=== PATIENT | female | born 1930 | race Caucasian/White ===

== ENCOUNTER → 2017-04-27 | Day surgery (SDC) | payer OTHER ==
[2017-04-27] VITALS (12 sets, daily range): BP systolic 102–161; BP diastolic 59–87; PULSE 70–96; TEMP 36.5–36.9; O2SAT 95–100; Ht 157.5 cm; Wt 76.0 kg
[~2017-04-27] VITALS: Ht 157.5 cm; Wt 76.0 kg
[~2017-04-27] MED LIST: ASPI81TA28 PO; CALC500C70 PO; CLIN1GEL TOP; HYDR25TA4 PO; IPRASOL4 INH; LEVALBUTEROL 1.25MG/0.5ML NEB INH SCH; LEVALBUTEROL 1.25MG/3ML NEB INH ONE; LORA-741 PO; MIDAZOLAM HCL 1 MG/ML 2ML VIAL IV ONE; MIDAZOLAM HCL 5 MG/ML 1 ML VIAL IV SCH; MULT-513 PO; NTRGSL/4 SL; NURSING VERBAL MED ORDER ONE; OXGN; PRED20TA PO; TIOT1AER INH; TRAM-10 PO; TRAV0.00 OP; VNTHFA/IN INH
--- NOTE | 2017-04-27 07:53 | History & Physical Bridge Note ---
H&P Re-Evaluation Bridge Note: I have examined the patient, reviewed the History & Physical and in the interval since the performance of the History & Physical I have noted the following changes of clinical significance: No changes noted
--- NOTE | 2017-04-27 07:54 | Procedure Note ---
Pre-Mod Sedation Assessment General Date of Moderate Sedation: Apr 27, 2017. Pre-Sedation Airway Assessment Mallampati Classification: Class II ASA Classification: Class II Procedure Planning Contraindications-for Mod Sed: None Yes Notes The planned sedation has been discussed with the patient and consent obtained. I have identified the patient, determined the appropriateness of sedation and have assessed the patient immediately prior to the procedure. All medicine(s) and interventions are by my order.
--- NOTE | 2017-04-27 11:26 | Discharge Instructions ---
Discharge Instructions Date of Service Apr 27, 2017. Admission Reason for Admission: Copd, Pulmonary Nodule, Sob Discharge Discharge Diagnosis / Problem: Chronic Bronchitis Discharge Goals Goal(s): Diagnostic testing, Therapeutic intervention Activity Recommendations Activity Limitations: resume your previous activity Lifting Limitations: none Exercise/Sports Limitations: none May Resume Sexual Activity: when tolerated Shower/Bathe: no limitations Driving or Machine Use: no limitations none . Current Hospital Diet Patient's current hospital diet: Discharge Diet Recommended Diet: Regular Diet Fluid Restriction: None Pending Studies Studies pending at discharge: no Medical Emergencies . Who to Call and When: Medical Emergencies: If at any time you feel your situation is an emergency, please call 911 immediately. . Non-Emergent Contact Non-Emergency issues call your: [employer]se[employer] Leveler Call Non-Emergent contact if: temperature is above 101 ACTIVITY RECOMMENDATIONS: * Rest today, resume normal activity tomorrow. * Do not drive today. SPECIAL CARE INSTRUCTIONS: * Call your physician if you experience any chest or shoulder pain, fever, coughing, spitting up blood (more than 2 teaspoons) or excessive shortness of breath. * Remove dressing from IV site (where needle was placed into the vein) after 2 hours. Apply a warm, moist compress to site if irritation occurs. Call physician if site becomes red or painful to touch. FOLLOW UP VISIT: * Keep any scheduled doctor appointments. . . "Provider Documentation" section prepared by Davi Monique. . VTE Core Measure Inpt VTE Proph given/why not?: Treatment not indicated
--- NOTE | 2017-04-27 16:27 | OPERATIVE REPORT ---
DATE OF OPERATION: 04/27/2017 PROCEDURE: Fiberoptic bronchoscopy with bronchoalveolar lavage. INDICATIONS: Chronic asthmatic bronchitis refractory to outpatient therapy. ANESTHESIA PREOPERATIVELY: None. ANESTHESIA DURING PROCEDURE: 2 mg IV Versed, 20 mL 2% Xylocaine spray above and below the cords, 4% viscous Xylocaine intranasally. DESCRIPTION OF PROCEDURE: Fiberoptic bronchoscope was inserted through left naris with minimal difficulty and passed to the level of the true vocal cords. The cords appeared to approximate normally with phonation without evidence of lesions or paralysis. Thick mucus was adherent to the supraglottic apparatus and the lavaged until clear. The cords were anesthetized. The scope was passed into the trachea and right and left tracheobronchial tree. The rosas was sharp. The right main stem bronchus was found to be free of endobronchial lesions. There was evidence for EDAC (excessive dynamic airway collapse) involving the right mainstem bronchus to approximately 60% of its usual customary diameter. The right upper lobe, the apical posterior, anterior segments, bronchus intermedius, right middle lobe, medial lateral segments and all basilar segments of the right lower lobe were found to be free of endobronchial lesions with a moderate amount of mucopurulent secretion lavaged from all lobar segments until clear. Mucus pitting with bronchial crypts and clefts were seen throughout the right tracheobronchial tree. Left tracheobronchial tree was explored and no endobronchial lesion was seen. Left upper lobe, lingular subdivision and left lower lobe were free of endobronchial lesions down to subsegmental bronchi with a copious amount of mucopurulent secretion lavaged from left lower lobe until clear. No brushings or biopsies were deemed necessary. The procedure was terminated. The patient was given a nebulizer treatment 1.25 mg of Xopenex and then transferred to the medical treatment unit hemodynamically stable with no signs of respiratory compromise. We will await microbiological and cytologic examination of the bronchial washings. I attest to the content of the Intraoperative Record and any orders documented therein. Any exceptions are noted below. MTDD
== END | disposition home or self-care (01) ==
LOC: C.ACU 07:27
PROVIDERS: ATTEND Internal Medicine Pulmonary Disease
DX: J44.9 Chronic obstructive pulmonary disease, unspecified (principal); C50.919 Malignant neoplasm of unspecified site of unspecified female breast; R13.10 Dysphagia, unspecified; M54.16 Radiculopathy, lumbar region; I10 Essential (primary) hypertension; K21.9 Gastro-esophageal reflux disease without esophagitis; F41.9 Anxiety disorder, unspecified; Z99.81 Dependence on supplemental oxygen; Z87.891 Personal history of nicotine dependence; Z79.82 Long term (current) use of aspirin; Z79.899 Other long term (current) drug therapy